=== PATIENT | male | born 1960 ===

== ENCOUNTER 2020-12-08 08:14 | Emergency (ER) | payer OTHER ==
[~2020-12-08] VITALS: Ht 172.7 cm; Wt 90.7 kg
[2020-12-08] MEDS ORDERED: AMOXICILLIN500 MG PO (09:40)
--- NOTE | 2020-12-09 07:07 | EKG ---
[facility] [address] [facility] [place] [address] Signed Normal sinus rhythm Minimal voltage criteria for LVH, may be normal variant Inferior infarct , age undetermined Abnormal ECG No previous ECGs available Confirmed by DEBBI FORREST MD ([id number]) on 12/09/2020 7:07:36 AM Electronically Signed By: DEBBI FORREST MD 12/09/20706 PATIENT NAME: AL CULVER Electrocardiogram DATE OF : 64 PHYSICIAN: DEBBI FORREST MD REPORT #: [id number] REPORT IS CONFIDENTIAL AND NOT TO BE RELEASED WITHOUT AUTHORIZATION
== END 2020-12-08 10:10 | disposition home or self-care (01) ==
LOC: ED 08:14
DX: S09.90XA Unspecified injury of head, initial encounter (principal); S16.1XXA Strain of muscle, fascia and tendon at neck level, initial encounter; H72.91 Unspecified perforation of tympanic membrane, right ear; E11.65 Type 2 diabetes mellitus with hyperglycemia; W17.89XA Other fall from one level to another, initial encounter; I10 Essential (primary) hypertension
CPT/HCPCS: 70450; 71045; 72125; 80053; 83690; 83735; 84484; 85025; 93005; 93010; 99285-25